=== PATIENT | female | born 1985 | race Hispanic/Latino ===

== ENCOUNTER 2017-08-14 13:03 | Day surgery (SDC) | payer MEDICAID, OTHER, SELFPAY ==
[2017-08-14 13:57] VITALS: BMI 24.3
--- NOTE | 2017-08-14 15:05 | PDOC.LDHP ---
Labor and Delivery H&P Chief complaint: decreased movement HPI: 31 yo @ 37.4 wks by 10wk US c/w LMP presents for decreased movement since this am. Pt says she didn't eat breakfast this morning but woke up and was feeling her baby move. She states she also had a small amount of bleeding when she went to the restroom. Past OB Hx: 2005 37wks 2007 40wks SGA 12 hours 2009 40 wks SGA 8 hours 2014 D&C @ 10 weeks [employer] Hx: NILM 01/2017 HPV HR + (16 or 18) Current gestational age (weeks): 37 (37.4) Due date: 08/31/17 Dating criteria: last menstrual period, first trimester ultrasound (10wk US c/w LMP) Grav: 5 Para: 3 ([id number]) OB History Details: see above Current complications: none Abnormal US findings: No Past Medical History: none Current medications: pre-israel vitamins Previous surgical history: none Allergies/Adverse Reactions: Allergies Allergy/AdvReac Type Severity Reaction Status Date / Time No Known Allergies Allergy Unverified 11/27/14 10:20 Social history: none - Physical Exam Vital signs reviewed and normal: yes General: NAD, resting Heart: RRR Lungs: CTAB Abdomen: gravid Extremeties: no edema FHT: category 1 [place] contractions every: 6-7 minutes - Vaginal Exam cm dilated: 1 (1.5) Effacement: 50% Station: -2 - OB Labs Blood type: O RH: positive Antibody Screen: negative HIV: negative RPR: negative HEPSAg: negative 1 hour GCT: negative Urine drug screen: not done Rubella: immune - Assessment Early Term 31 yo in latent labor. - Plan Plan: observation in L&D -: Plan: 1.) Early Term, latent labor- will monitor FHT's and provide juice and crackers to Mom. Will recheck Mom in 2 hours to assess to cervical change. Will likely send patient home if reactive strip. Mom is not currently having painful contractions. Will [place] mom on latent labor and to return if baby stops moving normally or has less than 6 movements in an hour. Will discuss with Mom that she should come back if her contractions are regular and painful. Her prior labor process was from 8-12 hours.
== END 2017-08-14 15:40 | disposition home or self-care (01) ==
LOC: L&D/OP 13:03
PROVIDERS: ATTEND Obstetrics & Gynecology Obstetrics
DX: O36.8130 Decreased fetal movements, third trimester, not applicable or unspecified (principal); O26.853 Spotting complicating pregnancy, third trimester; Z3A.37 37 weeks gestation of pregnancy; Z79.899 Other long term (current) drug therapy; Z98.890 Other specified postprocedural states
CPT/HCPCS: 99283

== ENCOUNTER 2017-08-15 05:14 | Inpatient (IN) | payer MEDICAID, OTHER, SELFPAY ==
[2017-08-15 05:43] VITALS: BMI 26.6
--- NOTE | 2017-08-15 11:13 | PDOC.LDPN ---
Labor & Delivery Progress Note - Subjective Subjective: painful contractions - Objective Vital signs reviewed and normal: yes General: NAD, breathing through contractions Uterine fundus: non tender Dilation: 4 Effacement: 50% Station: -2 FHT: category 1 [place] contractions every: 5-6minutes Plan: continue plan of care (Continue to obs in L&D. Recheck cervix in 2 hours.)
[2017-08-15] MEDS ORDERED: LR / Pitocin 40 units/1000 ml 1,000 ML IV PRN (11:15)
[2017-08-15] MEDS ORDERED: Docusate 100 MG CAP PO PRN (11:15)
[2017-08-15] MEDS ORDERED: Acetaminophen 500 MG TAB PO PRN (11:15)
[2017-08-15] MEDS ORDERED: Ondansetron HCl/PF 4 MG/2 ML Vial IVP PRN (11:15)
[2017-08-15] MEDS ORDERED: Misoprostol 200 MCG TAB PR PRN (11:15)
[2017-08-15] MEDS ORDERED: Ibuprofen 800 MG TAB PO PRN (11:15)
[2017-08-15] MEDS ORDERED: Promethazine HCl 25 MG/ML VIAL IM PRN (11:15)
[2017-08-15] MEDS ORDERED: Lidocaine 1% (PF) 30 ML VIAL SC PRN (11:15)
--- NOTE | 2017-08-15 11:15 | PDOC.LDPN ---
Labor & Delivery Progress Note - Subjective Subjective: painful contractions, other (See paper chart for paper H&P.) - Objective Vital signs reviewed and normal: yes General: breathing through contractions Uterine fundus: non tender Dilation: 7 Effacement: 100% Station: -2 FHT: category 1 [place] contractions every: 2 minutes Other exam findings: bulging bag Plan: other (Admit to L&D for early term patient in active labor. Will recheck the patient in one hour. )
[2017-08-15] MEDS: Lactated Ringer's 1,000 ML IV SCH (11:20)
[2017-08-15 11:40] LABS: Mean Corpuscular HGB CONC 34.3 g/dL (32.0-36.0); Mean Corpuscular Hemoglobin 33.1 pg (27.0-31.0); Mean Corpuscular Volume 96.5 fl (81.0-99.0); Mean Platelet Volume 9.3 fL (7.4-10.4); Platelet Count 189 thou/uL (130-400); RBC Distribution Width 12.3 % (11.5-14.5); Red Blood Cell (RBC) Count 3.92 mill/uL (4.20-5.40); White Blood Cell (WBC) Count 11.1 thou/uL (4.8-10.8)
--- NOTE | 2017-08-15 12:52 | PDOC.OPDEL ---
OB Operative/Delivery Note Delivery Dr/Surgeon: Dr. Dean, Dr. Pritchett Assist: Attending: Dr. Santamaria Pre-Delivery Diagnosis: active labor Procedure/Post Delivery Dx: spontaneous vaginal delivery Weeks gestation: 37 (37.5) Anesthesia: none - Findings A Sex: male - 1 min: 9 - 5 min: 9 - Additional Findings/Plan Placenta delivered: spontaneous Repaired Obstetrical Laceration: none Estimated blood loss: 150 Post delivery plan: routine recovery
[2017-08-15] MEDS ORDERED: Adacel (T-DAP) 0.5 ML VIAL IM ONE (12:57)
[2017-08-15] MEDS ORDERED: Lanolin Ointment 7 GM TUBE TOP PRN (12:57)
[2017-08-15] MEDS ORDERED: Bisacodyl 10 MG SUPP PR PRN (12:57)
[2017-08-15] MEDS ORDERED: Milk Of Magnesia 30 ML UDCUP PO PRN (12:57)
[2017-08-15] MEDS ORDERED: Preparation H Ointment 28 GM TUBE PR PRN (12:57)
[2017-08-15] MEDS ORDERED: LR / Pitocin 40 units/1000 ml 1,000 ML IV SCH (13:00)
[2017-08-15] MEDS: Ibuprofen 800 MG TAB PO SCH ×2 (13:38→20:30)
[2017-08-15] MEDS: Ferrous Sulfate 325 MG TAB PO SCH (18:31)
[2017-08-15] MEDS: Docusate Calcium (SURFAK) 240 MG CAP PO SCH (20:30)
[2017-08-16] MEDS: Ibuprofen 800 MG TAB PO SCH ×2 (05:56→14:03)
[2017-08-16 06:28] LABS: Hemoglobin 11.2 g/dL (12.0-16.0); Mean Corpuscular HGB CONC 33.6 g/dL (32.0-36.0); Mean Corpuscular Hemoglobin 33.1 pg (27.0-31.0); Mean Corpuscular Volume 98.3 fl (81.0-99.0); Mean Platelet Volume 9.3 fL (7.4-10.4); Platelet Count 197 thou/uL (130-400); RBC Distribution Width 12.3 % (11.5-14.5); Red Blood Cell (RBC) Count 3.38 mill/uL (4.20-5.40); White Blood Cell (WBC) Count 11.3 thou/uL (4.8-10.8)
[2017-08-16] MEDS: Ferrous Sulfate 325 MG TAB PO SCH (08:39)
[2017-08-16] MEDS: Lactated Ringer's 1,000 ML IV SCH ×2 (08:39→14:05)
[2017-08-16] MEDS: Docusate Calcium (SURFAK) 240 MG CAP PO SCH (08:49)
[2017-08-16] MEDS ORDERED: Prenatal Vitamin 1 TAB PO SCH (09:00)
--- NOTE | 2017-08-16 10:14 | PDOC.PP ---
Post Progress Note Post Day #: 1 Subjective: feeling well with no major concerns. states her milk has not yet come in, therefore is supplementing with formula. PO intake tolerated: yes Flatus: no Ambulation: yes Vital Signs (12 hours) Temp Pulse Resp BP 08/16/17 08:00 98.1 F 80 18 110/56 L 08/16/17 07:55 98.1 F 80 18 08/16/17 04:00 98.1 F 84 16 08/16/17 00:15 98.1 F 84 16 109/55 L Weight Weight 66.224 kg - Physical Examination General: NAD Cardiovascular: no m/r/g, RRR Respiratory: clear to auscultation bilaterally, non-labored breathing Abdominal: + bowel sounds, lochia (rubra, appropriate), no distention, appropriately TTP Fundus firm & at: umbilicus Neurological: no gross focal deficits Psychiatric: A&Ox3, normal affect Result Diagrams: 08/16/17 05:43 (1) Normal vaginal delivery Code(s): O80 - ENCOUNTER FOR FULL-TERM UNCOMPLICATED DELIVERY Status: Acute - Assessment/Plan 31yo -> delivered TAGA male via . 1) TIUP, delivered- ppd#1, doing well clinically with routine mgmt. minimal bleeding. counseling performed. pending 24hr lab work for , december d/c home today with outpt f/u. <Kimberly Pritchett - Last Filed: 08/16/17 10:12> Vital Signs (12 hours) Temp Pulse Resp BP 08/16/17 08:00 98.1 F 80 18 110/56 L 08/16/17 07:55 98.1 F 80 18 08/16/17 04:00 98.1 F 84 16 08/16/17 00:15 98.1 F 84 16 109/55 L Weight Weight 66.224 kg Result Diagrams: 08/16/17 05:43 <Francisco Santamaria - Last Filed: 08/16/17 10:42> Attending Addendum - Attending Addendum I personally evaluated the patient and discussed the management with Dr. Ribeiro. I agree with the History, Examination, Assessment and Plan documented above with any addition or exceptions noted below. <Rosalio,Francisco A - Last Filed: 08/16/17 10:42>
[2017-08-16 11:58] VITALS: BP 120/65; TEMP 98.9
== END 2017-08-16 14:45 | disposition home or self-care (01) | DRG 774 ==
LOC: L&D/OP 05:14 → L&D 11:01 → 3SW 15:21
PROVIDERS: ADMIT Family Medicine; ATTEND Family Medicine
PROC: 10E0XZZ Delivery of Products of Conception, External Approach (ICD-10-PCS; principal; 2017-08-15)
PROC: 3E0234Z Introduction of Serum, Toxoid and Vaccine into Muscle, Percutaneous Approach (ICD-10-PCS; 2017-08-16)
DX: O99.02 Anemia complicating childbirth (principal); O75.3 Other infection during labor; O98.32 Other infections with a predominantly sexual mode of transmission complicating childbirth; Z37.0 Single live birth; Z3A.37 37 weeks gestation of pregnancy; B96.20 Unspecified Escherichia coli [E. coli] as the cause of diseases classified elsewhere; A63.0 Anogenital (venereal) warts
CPT/HCPCS: 36415; 76815; 85027; 90715; 99285; J0595; J2001